=== PATIENT | male | born 1975 | race Two or more races ===

== ENCOUNTER 2018-04-15 10:35 | Day surgery (SDC) | payer OTHER | END 2018-04-15 17:16 | disposition home or self-care (01) | LOC: AMB-ENDOS 10:35 | DX: K64.8 Other hemorrhoids (principal) ==

== ENCOUNTER 2019-03-19 05:38 | Day surgery (SDC) | payer OTHER ==
[~2019-03-19 05:38] MED LIST: COZAAR100 MG
[2019-03-19] MEDS ORDERED: RECTICARE30 GM TOP (08:19)
[2019-03-19] MEDS ORDERED: PERCOCET 5-3251 EACH PO (08:20)
== END 2019-03-19 13:50 | disposition home or self-care (01) ==
LOC: CIR.AMB 05:38
DX: K64.2 Third degree hemorrhoids (principal)